=== PATIENT | female | born 1960 | race Caucasian/White ===

== ENCOUNTER 2017-11-18 19:23 | Emergency (ER) | payer SELFPAY ==
[~2017-11-18] VITALS: Ht 162.6 cm; Wt 96.2 kg
--- NOTE | 2017-11-18 19:57 | NUR ---
Dr. Mtz at bedside for MSE.
[2017-11-18] MEDS ORDERED: NEOMY/POLYMYX B/HC OTIC SOL 10 ML BOTTLE ONE (20:07)
[2017-11-18] MEDS ORDERED: NEOMY/POLYMYX B/HC OPHT DROP 7.5 ML BOTTLE ONE (20:08)
[2017-11-18] MEDS ORDERED: HYDROCODONE/APAP 10-325 MG TABLET PO ONE (20:15)
[2017-11-18] MEDS ORDERED: CIPROFLOXACIN HCL 250 MG TABLET PO ONE (20:15)
[2017-11-18] MEDS ORDERED: ONDANSETRON ODT 4 MG TAB.RAPDIS ONE (20:15)
[2017-11-18] MEDS ORDERED: ONDANSETRON ODT 4 MG TAB.RAPDIS SL ONE (20:15)
[2017-11-18] MEDS ORDERED: HYDROCODONE/APAP 10-325 MG TABLET ONE (20:15)
[2017-11-18] MEDS ORDERED: CIPROFLOXACIN HCL 250 MG TABLET ONE (20:20)
[2017-11-18 20:27] VITALS: BP 134/82
== END 2017-11-18 20:28 | disposition home or self-care (01) ==
LOC: ER 19:24
DX: H60.92 Unspecified otitis externa, left ear (principal); E11.9 Type 2 diabetes mellitus without complications; E66.9 Obesity, unspecified; E78.00 Pure hypercholesterolemia, unspecified
CPT/HCPCS: A4663; J3590; Q0162